=== PATIENT | female | born 1995 | race Caucasian/White ===

== ENCOUNTER 2017-10-05 18:59 | Emergency (ER) | payer OTHER ==
[~2017-10-05] VITALS: Ht 170.2 cm; Wt 54.0 kg
[2017-10-05 19:02] VITALS: BP 119/77
--- NOTE | 2017-10-05 19:26 | ED UPPER/LOWER EXTREMITY COMPL ---
History of Present Illness General Chief Complaint: Abdominal Pain/Flank Pain Stated Complaint: RLQ PAIN Source: patient Exam Limitations: no limitations Vital Signs & Intake/Output Vital Signs & Intake/Output Vital Signs Date Time Temp Pulse Resp B/P B/P Pulse O2 O2 Flow FiO2 Mean Ox Delivery Rate 10/05 1902 96.0 64 15 119/77 99 Room Air Room Air Allergies Coded Allergies: peanut (Intermediate, RASH 10/05/17) Triage Note: PT TO ED FOR C/C OF R HIP/ABD PAIN THAT STARTED AFTER PT WAS HIT BY A PIECE OF METAL AT WORK. Triage Nurses Notes Reviewed? yes Onset: Abrupt Duration: hour(s):, constant, changing over time Timing: recent history Severity: moderate Pain/Injury Location: Right: Hip. No Modifying Factors: none : No Patient currently breastfeeds: No HPI: 21-year-old female comes into the emergency room with complaints of right hip pain. Patient reports that she was at work when the machine was rotating around and hit her in the right hip/abdomen. She has some pain since then. She comes in for further evaluation. Sharp pain. Continuous. Nonradiating. Denies any other system symptoms. (Too Gupta) Past History Travel History Traveled to [place] past 21 day No Medical History Any Pertinent Medical History? see below for history Neurological: NONE EENT: NONE Cardiovascular: NONE Respiratory: NONE Gastrointestinal: NONE Hepatic: NONE Renal: NONE Musculoskeletal: NONE Psychiatric: NONE Endocrine: NONE Blood Disorders: NONE Cancer(s): NONE HR ASSISTANT/Reproductive: NONE Surgical History Surgical History: none Psychosocial History What is your primary language Greenlandic Tobacco Use: Never used ETOH Use: denies use Illicit Drug Use: denies illicit drug use Family History Hx Contributory? No (Too Gupta) Review of Systems Review of Systems Constitutional: Reports: no symptoms. EENTM: Reports: no symptoms. Respiratory: Reports: no symptoms. Cardiovascular: Reports: no symptoms. Gastrointestinal/Abdominal: Reports: no symptoms. Genitourinary: Reports: no symptoms. Musculoskeletal: Reports: see HPI. Skin: Reports: no symptoms. Neurological/Psychological: Reports: no symptoms. Hematologic/Endocrine: Reports: no symptoms. Immunological: Reports: no symptoms. All Other Systems: Reviewed and Negative (Too Gupta) Physical Exam Physical Exam General Appearance: well developed/nourished, mild distress Head: atraumatic Eyes: Bilateral: normal appearance. Ears, Nose, Throat: normal ENT inspection, hearing grossly normal Neck: normal inspection Cardiovascular/Respiratory: no respiratory distress Back: normal inspection Hip Right: normal range of motion, normal inspection, bone tenderness Neurologic/Tendon: normal sensation, normal motor functions, normal tendon functions, responds to pain, no evidence tendon injury, no pulse deficit, no right lower quadrant pain, no bruising Skin: intact, normal color, warm/dry (Too Gupta) Progress Differential Diagnosis: contusion, fracture, septic arthritis, sprain, tendon injury, abdominal injury Plan of Care: Orders Procedure Date/time Status URINE 10/05 1915 Complete Laboratory Tests 10/05/171917: Urine Test NEGATIVE Diagnostic Imaging: Viewed by Me: Radiology Read. Discussed w/RAD: Radiology Read. Radiology Impression: PATIENT: KENNY HAMMOND PRESENT AGE: 21 PATIENT ACCOUNT NO: [id number] : 93 LOCATION: [facility] ORDERING PHYSICIAN: Too MÁRQUEZ SERVICE DATE: 10/05/17 EXAM TYPE : RAD - XRY-HIP 2-3 VIEWS, RIGHT EXAMINATION: XR HIP, RIGHT CLINICAL INFORMATION : Right hip pain COMPARISON: None TECHNIQUE: Two views of the right hip. FINDINGS: No fracture or dislocation. Alignment is anatomic. The joint space is maintained. The visualized right hemipelvis is intact. The bowel gas pattern is unremarkable. IMPRESSION: Unremarkable right hip radiographs. DICTATED BY: Sandro Aguero MD DATE/TIME DICTATED:10/05/171952 [employer] PARTS HAND[employer]ER: [employer] DATE/TIME TRANSCRIBED:10/05/171952 CONFIDENTIAL, DO NOT COPY WITHOUT APPROPRIATE AUTHORIZATION. <Electronically signed in Other Vendor System> SIGNED BY: Sandro Aguero MD 10/05/171955 (Too Gupta) Departure Departure Disposition: HOME OR SELF CARE Condition: Stable Clinical Impression Primary Impression: Contusion of right hip Referrals: Rolo Onofre MD (PCP/Family) Additional Instructions: Take ibuprofen for pain. Return if any concerns worsening symptoms. Please go over all results of today's visit with your primary care doctor. Contact your primary care doctor to let them know you were here in the emergency room. There may be nonspecific findings which may not be related to your visit today here in the emergency room but may require further evaluation and chronic monitoring by your primary care doctor. If you had a laceration today the chance of foreign body always remains. You should follow-up with your primary care doctor for recheck in 3-5 days for a wound check. If you had an x-ray done there is a chance that a fracture could have been missed on initial read and you should follow-up with your primary care doctor for repeat x-rays if symptoms persist. If your blood pressure was elevated here in the emergency room please have rechecked by the hospital at [facility] primary care doctor within the next 48. If you were prescribed a narcotic here in the emergency room or any type of controlled substances you're not allowed to drive while taking this medication or operate any type of heavy machinery. Narcotics can make you feel lightheaded dizziness nausea and can cause constipation. You may need to cigar packer and picker a stool softener. Thank you for choosing [facility] emergency room. Please return to the emergency room immediately if you have any other concerns worsening of symptoms. Departure Forms: Customer Survey General Discharge Information Comments 10/05/17 Patient clinically looks well. No evidence of acute trauma. Follow-up with primary care doctor as needed. Return if any other concerns worsening symptoms. Follow-up with occupational medicine. (Too Gupta) PA/DEATH SURVEYS CODER Co-Sign Statement Statement: ED Attending supervision documentation- I saw and evaluated the patient. I have also reviewed all the pertinent lab results and diagnostic results. I agree with the findings and the plan of care as documented in the PA's/DEATH SURVEYS CODER's documentation. x I have reviewed the ED Record and agree with the PA's/DEATH SURVEYS CODER's documentation. [] Additions or exceptions (if any) to the PAs/DEATH SURVEYS CODER's note and plan are summarized below: [] (Armond SIDHU,Emile)
--- NOTE | 2017-10-05 19:56 | RADIOLOGY REPORT ---
EXAMINATION: XR HIP, RIGHT CLINICAL INFORMATION: Right hip pain COMPARISON: None TECHNIQUE: Two views of the right hip. FINDINGS: No fracture or dislocation. Alignment is anatomic. The joint space is maintained. The visualized right hemipelvis is intact. The bowel gas pattern is unremarkable. IMPRESSION: Unremarkable right hip radiographs.
== END 2017-10-05 20:18 ==
LOC: ERH 18:59
DX: S70.01XA Contusion of right hip, initial encounter (principal); W22.8XXA Striking against or struck by other objects, initial encounter; Y92.9 Unspecified place or not applicable; Y93.9 Activity, unspecified
CPT/HCPCS: 73502-RT; 81025